=== PATIENT | female | born 1965 | race Caucasian/White ===

== ENCOUNTER 2020-01-31 16:28 | Emergency (ER) | payer OTHER ==
--- NOTE | 2020-01-31 16:56 | EDM.PDOC ---
ED HPI GENERAL MEDICAL PROBLEM - General Stated Complaint: HIT WITH KAYLYN Time Seen by Provider: 01/31/20 16:50 Source of Information: Reports: Patient History Limitations: Reports: No Limitations - History of Present Illness INITIAL COMMENTS - FREE TEXT/NARRATIVE: Patient comes emergency department today by herself with complaints of an injury to her face. Just prior to arrival the patient was working unloading a trailer onto her truck when she was using a floor kaylyn the handle released spun up and hit her in the face striking her just on the lateral aspect of her left nose. She did not get knocked out. She has no visual changes. She complains of some pain that radiates down to her teeth but she did not get hit in the mouth. She has no difficulty breathing. She has an abrasion to the left cheek. She has no neck pain. She has concerns for her nose being fractured because she was hit quite hard. Left Face/Facial Pain Score (Numeric/FACES): 8 - Related Data Allergies Allergy/AdvReac Type Severity Reaction Status Date / Time Sulfa (Sulfonamide Allergy Hives Verified 07/23/18 11:53 Antibiotics) Home Meds: Home Meds . [No Known Home Meds] 07/23/18 [History] Past Medical History - Past Health History Medical/Surgical History: Denies Medical/Surgical History - Past Surgical History Female Surgical History: Reports: Section ED ROS ENT - Review of Systems Review Of Systems: Comprehensive ROS is negative, except as noted in HPI. ED EXAM, ENT - Physical Exam Exam: See Below Exam Limited By: No Limitations General Appearance: Alert, WD/WN, No Apparent Distress Eye Exam: Bilateral Eye: EOMI, Normal Inspection, PERRL Ears: Normal External Exam, Normal Canal, Hearing Grossly Normal, Normal TMs Nose: Nasal Swelling (on the left mid aspect of the nose extending into the left arch with a small superficial abrasion on the face. ), Nasal Tenderness. No: Clear Rhinorrhea, Nasal Deformity, Nasal Discharge, Nasal Ecchymosis, Foreign Body, Septal Deformity, Septal Hematoma, Septal Perforation, Active Bleeding, Dried Blood, Injected Turbinates Mouth/Throat: Normal Inspection, Normal Gums, Normal Lips, Normal Oropharynx, Normal Teeth. No: Dental Pain, Dental Tenderness, Dental Trauma Head: Atraumatic, Normocephalic Neck: Normal Inspection, Supple, Non-Tender Respiratory/Chest: No Respiratory Distress, No Accessory Muscle Use Cardiovascular: Normal Peripheral Pulses, Regular Rate, Rhythm Back: Normal Inspection Extremities: Normal Inspection Neurological: Alert, Oriented, CN II-XII Intact, Normal Cognition, Normal Gait, No Motor/Sensory Deficits Psychiatric: Normal Affect, Normal Mood Skin: Warm, Dry, Intact, Normal Color, No Rash Course - Vital Signs Last Recorded V/S: Last Vital Signs Temp 36.6 C 01/31/20 16:40 Pulse 66 01/31/20 16:40 Resp 16 01/31/20 16:40 BP 140/65 01/31/20 16:40 Pulse Ox 96 01/31/20 16:40 - Radiology Interpretation Free Text/Narrative:: CT per radiology shows acute nondisplaced fracture at the base of the left nasal bone with overlying soft tissue contusion no other fractures identified - Re-Assessments/Exams Free Text/Narrative Re-Assessment/Exam: 01/31/20 18:41 Patient refused anything for pain. Ice was applied to the area. Her tetanus immunization was verified is up-to-date. CT scan maxillofacial shows non-displaced left nasal bone fracture no other fractures with some soft tissue swelling when reviewed extemporaneously by myself. There is no pathology in the oropharynx as well. I explained to the patient the results of her CT scan. Most likely the pain that she is feeling on her teeth is from the nerve that comes down just on lateral aspect of the nose to the front teeth was injured with the blunt force trauma to her face. There is no subcutaneous emphysema no active bleeding. She denies anything for pain. Symptomatic management at this time. She is on happy with the appearance of it following the swelling reduction she is to see ENT for further care and management. She is comfortable with this plan and her questions are answered. 01/31/20 18:42 Departure - Departure Time of Disposition: 17:32 Disposition: Home, Self-Care 01 Clinical Impression: Nasal bones, closed fracture Qualifiers: Encounter type: initial encounter Qualified Code(s): S02.2XXA - Fracture of nasal bones, initial encounter for closed fracture Facial abrasion Qualifiers: Encounter type: initial encounter Qualified Code(s): S00.81XA - Abrasion of other part of head, initial encounter - Discharge Information Instructions: Nasal Fracture, [id number], Abrasion, [id number] Referrals: PCP,None [Primary Care Provider] - Forms: ED Department Discharge Additional Instructions: Tylenol and or Ibuprofen as needed for pain. Ice to the injured area as much as possible for pain and swelling. Abrasion cleanse twice daily with soap and water bacitracin until healed. Watch for signs of infection. After the swelling goes down see ENT if you are unhappy with the appearance of your nose. Return to the ED if new or worsening symptoms. Sepsis Event Note - Focused Exam Vital Signs: Vital Signs Temp Pulse Resp BP Pulse Ox 01/31/20 16:40 36.6 C 66 16 140/65 96 Date Exam was Performed: 01/31/20 Time Exam was Performed: 18:38 - Assessment/Plan Assessment:: Left nasal bone fracture Facial abrasion. Plan: Tylenol and or Ibuprofen as needed for pain. Ice to the injured area as much as possible for pain and swelling. Abrasion cleanse twice daily with soap and water bacitracin until healed. Watch for signs of infection. After the swelling goes down see ENT if you are unhappy with the appearance of your nose. Return to the ED if new or worsening symptoms.
--- NOTE | 2020-01-31 17:22 | CT ---
[id number] CT/CT Facial Bones WO IV Exam: CT Facial Bones WO IV Indication:TRAUMA TO THE FACE LEFT ZYGOMATIC MEDIAL ARCH. Comparison: No prior imaging for comparison. Discussion: Punctate radiopaque foreign body within the cutaneous soft tissues overlying the left zygomatic arch. No evidence of fracture of the zygomatic arch. Soft tissue contusion overlying the base of the left nasal bone with underlying nondisplaced acute appearing nasal bone fracture. No other facial bone fractures are identified. Impression: Acute nondisplaced fracture at the base of the left nasal bone with overlying soft tissue contusion. No other fractures identified. Too Villalobos MD 01/31/20 [id number] Thank you for allowing us to participate in the care of your patient.
== END 2020-01-31 17:40 | disposition home or self-care (01) ==
LOC: VM.ED 16:28
DX: S02.2XXA Fracture of nasal bones, initial encounter for closed fracture (principal); Z88.2 Allergy status to sulfonamides; W22.8XXA Striking against or struck by other objects, initial encounter
CPT/HCPCS: 70486; 99283